=== PATIENT | female | born 1935 | race African-American/Black ===

== ENCOUNTER 2017-05-11 07:27 | Observation (INO) | payer MEDICARE, MEDICAID ==
[2017-05-11] MEDS ORDERED: Morphine 4 MG/ML VIAL ONE ×2 (07:50→10:21)
[2017-05-11 07:52] LABS: #Basophils 0.1 thou/uL (0.0-0.2); #Eosinphils 0.1 thou/uL (0.0-0.7); #Monocytes 0.7 thou/uL (0.11-0.59); #Neutrophils 3.4 thou/uL (1.40-6.50); %Eosinophils 2.2 % (0.0-10.0); %Lymphocytes 31.9 % (21.0-51.0); %Monocytes 11.1 % (0.0-10.0); %Neutrophils 53.8 % (42.0-75.0); Hemoglobin 11.6 g/dL (12.0-16.0); Mean Corpuscular Hemoglobin 30.6 pg (27.0-31.0); Mean Corpuscular Volume 92.8 fl (81.0-99.0); Platelet Count 248 thou/uL (130-400); White Blood Cell (WBC) Count 6.3 thou/uL (4.8-10.8)
[2017-05-11 08:04] LABS: INR-International Normal Ratio 3.7; PTT 44.1 SEC (22.9-36.1); Prothrombin Time 38.6 SEC (12.0-14.7)
[2017-05-11 08:16] LABS: ALT (SGPT) 29 U/L (8-55); AST (SGOT) 25 U/L (5-34); Albumin 4.2 g/dL (3.4-4.8); Alkaline Phosphatase 70 U/L (40-150); Anion Gap 15 mmol/L (10-20); BUN (Urea Nitrogen) 42 mg/dL (9.8-20.1); Bilirubin, Total 0.5 mg/dL (0.2-1.2); Calc. Creatinine Clearance 0 mL/min (70-130); Calcium 9.6 mg/dL (7.8-10.44); Carbon Dioxide 22 mmol/L (23-31); Chloride 101 mmol/L (98-107); Estimated GFR-MDRD 35; Globulin 3.8 g/dL (2.4-3.5); Glucose 115 mg/dL (83-110); Potassium 4.3 mmol/L (3.5-5.1); Sodium 134 mmol/L (136-145)
--- NOTE | 2017-05-11 08:36 | ULT ---
BILATERAL UPPER EXTREMITY VENOUS DOPPLER ULTRASOUND: HISTORY: Bilateral upper extremity pain. TECHNIQUE: Weber-scale, color-flow, and spectral Doppler imaging of the deep venous systems of the lower extremit ies is performed bilaterally. FINDINGS: There is good flow, compression, and augmentation noted in the common femoral, femoral, deep femoral, popliteal, posterior tibial, and greater saphenous veins on either side. 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 IMPRESSION: No evidence of deep venous thrombosis in either lower extremity. POS: GILBERTO
[2017-05-11 11:38] VITALS: BMI 33.7
[2017-05-11] MEDS ORDERED: Dextrose 50% Abboject 50 ML SYRINGE IVP PRN (13:18)
[2017-05-11] MEDS ORDERED: Dextrose 5% in Water 1,000 ML IV PRN (13:18)
[2017-05-11] MEDS ORDERED: Insulin Regular 300 UNITS/3 ML VIAL SC PRN (13:18)
[2017-05-11] MEDS ORDERED: Ondansetron HCl/PF 4 MG/2 ML Vial IVP PRN (13:59)
[2017-05-11] MEDS: Piperacillin/Tazobactam 3.375 GM in Sodium Chloride 0.9% 100 ML IVPB SCH ×2 (14:17→21:32)
[2017-05-11] MEDS: Sodium Chloride 0.9% 1,000 ML IV SCH (14:17)
[2017-05-11 14:40] LABS: Bilirubin Negative (Negative); Blood, Urine Negative (Negative); Clarity CLEAR (Clear); Glucose, Urine (Dipstick) Negative (Negative); Leukocyte Trace (Negative); Nitrite Negative (Negative); Protein, Urine (Dipstick) Negative (Neg-Trace); Specific Gravity, Urine 1.009 (1.002-1.036); Urobilinogen 0.2 mg/dL (0.2-1.0)
[2017-05-11 14:42] LABS: Bacteria/HPF None Seen HPF (None Seen); Hyaline Casts/LPF 0-3 HYALINE CAST LPF (0-3 Hyaline); RBC/HPF 0-3 HPF (0-3); Squamous Epithelial 0-3 HPF (0-3); WBC/HPF 0-3 HPF (0-3)
--- NOTE | 2017-05-11 15:49 | HP ---
HISTORY OF PRESENT ILLNESS: Ms. García is an 81-year-old black female, who was sent for right leg sw elling. According to the patient, she was seen by her primary care doctor Dr. Kenny about a wee k ago. She was diagnosed with cellulitis. She was given Augmentin; however, cellulitis has not impr zac. The patient complains of some right leg pain. A Doppler was done which showed negative studie s, having no evidence of DVT. REVIEW OF SYSTEMS: No chest pain, no shortness of breath. Positive for right leg pain. Positive fo r pruritic lesions around groin area as well as perianal area and breast area. Appetite is fair. En ergy level is fair. No headache, no diplopia, no syncopal episode, no productive cough. No fever or chills. No gross hematuria. No dysuria. No urinary frequency. No abdominal pain. Positive for j oint pains and back pain. MEDICATIONS: Zosyn 3.375 grams IV q.8, nifedipine 90 mg XL tablet once a day, Coreg 25 mg tablet b.i .d., Tylenol 500 mg tablet q.6 hours p.r.n. Coumadin 5 mg - half a tablet Sunday to Sunday, then 5 m g - 1 tablet Sunday and Sunday. Folic acid 1 mg tablet once daily, Protonix 40 mg tablet once a da y, atorvastatin 10 mg tablet at bedtime, Onglyza 5 mg tablet daily, Lantus insulin 25 units subcu q.a .m. Clotrimazole cream to be applied in the breast area, perianal area, and groin area twice a day. PAST MEDICAL HISTORY: 1. Sick sinus syndrome. 2. Type 2 diabetes mellitus. 3. Hypertension. 4. Chronic renal disease. 5. GERD. 6. Obesity. 7. Hyperlipidemia. 8. Chronic atrial fibrillation? 9. Type 2 diabetes mellitus. 10. Chronic fungal infection. PAST SURGICAL HISTORY: 1. 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 2. Status post permanent pacemaker placement. 3. Status post cardiac catheterization. 4. Status post right knee replacement. SOCIAL HISTORY: The patient lives alone, lives in [place]. Several children, retired email administrator. E [employer]ation 10th grade. No history of smoking, no alcohol intake, no IV drug abuse. No blood transfusi on. ALLERGIES: IODINE, CODEINE, TRAMADOL, SULFA. IMMUNIZATIONS: Unknown. HOSPITALIZATIONS: Please see past medical history. TRAUMA: None. FAMILY HISTORY: No family history of ESRD. PHYSICAL EXAMINATION: VITAL SIGNS: Blood pressure is 146/60, heart rate 80, pulse ox 97%. GENERAL: Awake, alert, supine, comfortable, obese, not in distress. SKIN: Adequate turgor. HEENT: She has pinkish conjunctivae, anicteric sclerae. NECK: No neck mass, no carotid bruits, no JVD. CHEST: No deformities. LUNGS: Clear breath sounds. HEART: Normal sinus rhythm. No murmur, no gallops, no rubs. ABDOMEN: Globular, soft, nontender, no masses. EXTREMITIES: No edema. Positive for right lower leg erythema and mild tenderness. NEUROLOGIC: Awake, oriented to 3 spheres. Moving all extremities. No tremors or asterixis, no atax ia. LABORATORY DATA: 05/11/2017: INR is 3.7, sodium 134, potassium is 4.3, chloride 101, carbon dioxide 22, BUN 42, creatinine 1.71, glucose 115, GFR 35 mL per minute. Albumin 4.2. BNP 280. White count 6.2, hemoglobin 11.6. Doppler of the right leg, negative for DVT. ASSESSMENT AND PLAN: 1. Right leg cellulitis, no evidence of deep vein thrombosis. We will start Zosyn 3.375 grams IV q. 8. If no improvement, we may need to consider ID consult. 2. 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 Continue supportiv e care, hold off valsartan temporarily. I will also discontinue her home medication of hydrochloroth iazide. 3. Hypertension. Continue current blood pressure meds. Due to the slightly increased creatinine, v alsartan/hydrochlorothiazide was discontinued and I did decrease nifedipine from 60 to 90 mg XL table t once a day. 4. Fungal infection - groin area and perianal area as well as the breast area - clotrimazole cream t o be applied twice a day. 5. Type 2 diabetes mellitus. Continue current insulin regimen, Humulin R sliding scale, as well as continue Onglyza. Medication reviewed. The patient currently will be on Zosyn at 3.375 grams IV q.8, nifedipine 90 mg XL tablet once a day, Coreg 25 mg tablet b.i.d., p.r.n. Tylenol, Coumadin as directed, folic acid 1 m g tablet once a day, Lantus 25 units in the morning, atorvastatin 10 mg tablet at bedtime, Onglyza 5 mg tablet once a day. Due to the mildly elevated INR 3.5, we will hold off about today's Coumadin. We will check CMP, CBC daily, and urinalysis in a.m. We will also do a renal ultrasound.
[2017-05-11] MEDS: Acetaminophen 500 MG TAB PO PRN (16:09)
--- NOTE | 2017-05-11 18:55 | ULT ---
EXAM: RENAL ULTRASOUND 05/11/17 HISTORY: Renal failure. COMPARISON: None. TECHNIQUE: Sagittal and transverse imaging of the kidneys is performed. FINDINGS: There is bilateral renal cortical thinning. Bilaterally, no hydronephrosis. Both kidneys are diminutive. Right kidney measures 8.1 x 4.5 x 4.4 cm. Left kidney measures 7.8 x 4.9 x 4.8 cm. Hypoechoic focus in the lower pole of the right kidney measuring 2.7 x 2.1 x 2.3 cm, compatible with a cyst. Hypoechoic focus in the mid portion left kidney measuring 1.4 x 1.5 x 1.4 cm, also compatible with a cyst. Urinary bladder is unremarkable. Bladder volume is 425 cubic centimeters. IMPRESSION: 1. Bilateral renal cortical thinning. 2. Bilaterally, no hydronephrosis. POS: GILBERTO
[2017-05-11] MEDS: Atorvastatin Calcium 10 MG TAB PO SCH (21:30)
[2017-05-11] MEDS: Carvedilol 25 MG TAB PO SCH (21:30)
[2017-05-11] MEDS: Clotrimazole 1 % Cream 30 GM TUBE TOP SCH (21:31)
[2017-05-12] MEDS: Sodium Chloride 0.9% 1,000 ML IV SCH ×3 (03:26→21:10)
[2017-05-12 04:32] LABS: #Eosinphils 0.2 thou/uL (0.0-0.7); #Lymphocytes 1.6 thou/uL (1.20-3.40); #Monocytes 0.7 thou/uL (0.11-0.59); #Neutrophils 3.3 thou/uL (1.40-6.50); %Basophils 0.6 % (0.0-1.0); %Eosinophils 3.3 % (0.0-10.0); %Lymphocytes 27.5 % (21.0-51.0); %Monocytes 12.5 % (0.0-10.0); %Neutrophils 56.1 % (42.0-75.0); Hemoglobin 10.4 g/dL (12.0-16.0); Mean Corpuscular HGB CONC 33.6 g/dL (32.0-36.0); Mean Corpuscular Hemoglobin 31.6 pg (27.0-31.0); Mean Corpuscular Volume 94.1 fl (81.0-99.0); Platelet Count 225 thou/uL (130-400); RBC Distribution Width 12.8 % (11.5-14.5); Red Blood Cell (RBC) Count 3.29 mill/uL (4.20-5.40); White Blood Cell (WBC) Count 5.9 thou/uL (4.8-10.8)
[2017-05-12 04:52] LABS: ALT (SGPT) 19 U/L (8-55); AST (SGOT) 19 U/L (5-34); Albumin 3.6 g/dL (3.4-4.8); Alkaline Phosphatase 56 U/L (40-150); Anion Gap 11 mmol/L (10-20); BUN (Urea Nitrogen) 38 mg/dL (9.8-20.1); Bilirubin, Total 0.5 mg/dL (0.2-1.2); Calc. Creatinine Clearance 31 mL/min (70-130); Calcium 8.9 mg/dL (7.8-10.44); Carbon Dioxide 26 mmol/L (23-31); Chloride 102 mmol/L (98-107); Estimated GFR-MDRD 32; Globulin 3.1 g/dL (2.4-3.5); Glucose 232 mg/dL (83-110); Potassium 4.3 mmol/L (3.5-5.1); Protein, Total 6.7 g/dL (6.0-8.3); Sodium 135 mmol/L (136-145)
[2017-05-12] MEDS: Piperacillin/Tazobactam 3.375 GM in Sodium Chloride 0.9% 100 ML IVPB SCH ×3 (06:15→21:42)
[2017-05-12] MEDS: Insulin Detemir 100 UNITS/ML 25 UNITS in Pre-Filled Syringe 1 EACH SC SCH (08:21)
[2017-05-12] MEDS: Alogliptin 25 MG TAB PO SCH (08:22)
[2017-05-12] MEDS: Folic Acid 1 MG TAB PO SCH (08:22)
[2017-05-12] MEDS: Clotrimazole 1 % Cream 30 GM TUBE TOP SCH ×2 (08:23→21:42)
[2017-05-12] MEDS: Carvedilol 25 MG TAB PO SCH ×2 (08:23→21:42)
[2017-05-12] MEDS ORDERED: NIFEdipine XL 90 MG TAB PO SCH (09:00)
[2017-05-12 09:09] LABS: Prothrombin Time 43.2 SEC (12.0-14.7)
[2017-05-12 09:17] LABS: INR-International Normal Ratio 4.3
--- NOTE | 2017-05-12 11:26 | PRG ---
DATE OF SERVICE: 05/12/2017 SERVICE: Renal Medicine. SUBJECTIVE: Ms. Ekaterina García is an 81-year-old black female admitted for right leg cellulitis. She fa iled oral therapy. She was admitted for initiation of IV antibiotics. Currently on Zosyn. I did al so discontinued her hydrochlorothiazide and valsartan due to her chronic renal failure. This morning , her INR was elevated at 4.2. Coumadin was placed on hold. Patient voices no new complaints. Her right leg pain is actually slightly better. Her erythema is a lso much improved. OBJECTIVE: VITAL SIGNS: Blood pressure 116/68, heart rate 65, respiratory rate 16, temperature 98.2, pulse ox 9 9%. GENERAL: Awake, alert, comfortable, not in distress. SKIN: Adequate turgor. HEENT: Slightly pale conjunctivae, anicteric sclerae. NECK: No neck mass, no carotid bruits, no JVD. CHEST: No deformities. LUNGS: Clear breath sounds. HEART: Normal sinus rhythm. No murmur, no gallops or rubs. ABDOMEN: Globular, soft, nontender, no masses. EXTREMITIES: No edema, no deformities. Mild erythema on the right leg and mild tenderness on palpat ion of the right leg. MEDICATIONS: Of 05/12/2017 was reviewed. LABORATORY DATA: Of 05/12/2017, white count 5.9, hemoglobin 10.4, sodium 135, potassium 4.3, chlorid e 102, carbon dioxide 26, BUN 38, creatinine 1.86, glucose 232, AST 19, ALT 19, albumin 3.6. Urinaly sis shows no protein. INR was 4.3. ASSESSMENT AND PLAN: 1. History of chronic atrial fibrillation? - currently on Coumadin. INR noted at 4.3. We will hold off Coumadin dosing today and recheck INR in a.m. 2. Right leg cellulitis - slightly improved on IV Zosyn, continue current IV antibiotics for the nex t 2-3 days. The erythema is decreased as well as the pain. 3. Elevated INR - will discontinue Coumadin. 4. Hypertension, much improved. I decreased Procardia from 90 to 60 mg XL tab once a day due to the lower blood pressure today. 5. Chronic renal failure. Relatively stable. Off hydrochlorothiazide and valsartan. We will reche ck basic metabolic panel and CBC and INR in a.m.
[2017-05-12] MEDS: Acetaminophen 500 MG TAB PO PRN (14:04)
[2017-05-12] MEDS ORDERED: Warfarin Sodium 5 MG TAB PO SCH (17:00)
[2017-05-12] MEDS: Atorvastatin Calcium 10 MG TAB PO SCH (21:42)
[2017-05-13 05:54] LABS: #Eosinphils 0.2 thou/uL (0.0-0.7); #Lymphocytes 1.6 thou/uL (1.20-3.40); #Monocytes 0.6 thou/uL (0.11-0.59); #Neutrophils 3.5 thou/uL (1.40-6.50); %Basophils 0.6 % (0.0-1.0); %Eosinophils 3.4 % (0.0-10.0); %Lymphocytes 27.4 % (21.0-51.0); %Monocytes 10.4 % (0.0-10.0); %Neutrophils 58.2 % (42.0-75.0); Hemoglobin 9.8 g/dL (12.0-16.0); Mean Corpuscular HGB CONC 32.4 g/dL (32.0-36.0); Mean Corpuscular Hemoglobin 30.8 pg (27.0-31.0); Mean Corpuscular Volume 94.9 fl (81.0-99.0); Mean Platelet Volume 5.9 fL (7.4-10.4); Platelet Count 214 thou/uL (130-400); RBC Distribution Width 13.1 % (11.5-14.5); Red Blood Cell (RBC) Count 3.17 mill/uL (4.20-5.40)
[2017-05-13 06:10] LABS: Anion Gap 9 mmol/L (10-20); BUN (Urea Nitrogen) 26 mg/dL (9.8-20.1); Calc. Creatinine Clearance 37 mL/min (70-130); Calcium 8.7 mg/dL (7.8-10.44); Carbon Dioxide 25 mmol/L (23-31); Chloride 108 mmol/L (98-107); Estimated GFR-MDRD 40; Glucose 116 mg/dL (83-110); Potassium 4.4 mmol/L (3.5-5.1); Sodium 138 mmol/L (136-145)
[2017-05-13] MEDS: Piperacillin/Tazobactam 3.375 GM in Sodium Chloride 0.9% 100 ML IVPB SCH (06:33)
[2017-05-13] MEDS: Sodium Chloride 0.9% 1,000 ML IV SCH (07:17)
[2017-05-13 07:46] VITALS: TEMP 98.6
[2017-05-13] MEDS: Carvedilol 25 MG TAB PO SCH (08:25)
[2017-05-13] MEDS: Acetaminophen 500 MG TAB PO PRN (08:25)
[2017-05-13] MEDS: Folic Acid 1 MG TAB PO SCH (08:25)
[2017-05-13] MEDS: Alogliptin 25 MG TAB PO SCH (08:28)
[2017-05-13] MEDS: Clotrimazole 1 % Cream 30 GM TUBE TOP SCH (08:29)
[2017-05-13] MEDS: Insulin Detemir 100 UNITS/ML 25 UNITS in Pre-Filled Syringe 1 EACH SC SCH (08:31)
[2017-05-13 08:34] VITALS: BP 116/68
[2017-05-13] MEDS ORDERED: NIFEdipine XL 60 MG TAB PO SCH (09:00)
[2017-05-13 09:15] LABS: INR-International Normal Ratio 3.7; Prothrombin Time 38.4 SEC (12.0-14.7)
[2017-05-13] MEDS ORDERED: Warfarin Sodium 5 MG TAB PO SCH (17:00)
--- NOTE | 2017-05-13 19:00 | DIS ---
DATE OF ADMISSION: 05/11/2017 DATE OF DISCHARGE: 05/13/2017 ADMITTING DIAGNOSES: Right leg cellulitis, hypertension, acute kidney injury. DISCHARGE DIAGNOSES: Right leg cellulitis, hypertension, acute kidney injury, diabetes mellitus. IMAGIN. On 05/11/2017, right leg Doppler negative for DVT. 2. Renal ultrasound of 05/11/2017, bilateral renal cortical thinning bilaterally, no hydronephrosis. INVASIVE PROCEDURES: None. BRIEF HISTORY: Ms. García is an 81-year-old black female with known multiple medical problems and pr esented to the ER with right leg pain. At that time, she was considered to be a failed antibiotic th erapy. She was on Augmentin. She was converted to IV Zosyn on this hospitalization. HOSPITAL COURSE: On the day of admission, we discontinued Augmentin. The patient was started on IV Zosyn 3.375 grams IV q.8. In addition, she was ruled out for right leg DVT. The initial vital signs were noted to be stable with the patient. However, due to the relatively lower blood pressure, her valsartan/hydrochlorothiazide has been discontinued. She was maintained on Coreg and nifedipine. Fu rthermore, the INR was noted to be elevated. For that reason, she received no Coumadin in the last 3 days. On the first hospital day, the right leg swelling and hematoma was much improved. Vital sign s were stable. Her laboratories at that time showed a sodium of 135, potassium 4.3, BUN of 38, creat inine 1.86, carbon dioxide 26. On the day of discharge, the patient was noted to be hemodynamically stable. PHYSICAL EXAMINATION: VITAL SIGNS: Blood pressure 116/68 with a heart rate of 69, respiratory rate of 18, temperature 98.6 . GENERAL: She was awake, comfortable, not in distress. SKIN: Adequate turgor. HEENT: Pinkish conjunctivae, anicteric sclerae. NECK: No neck mass, no carotid bruits, no JVD. CHEST: No deformities. LUNGS: Clear breath sounds. HEART: Normal sinus rhythm. No murmur, no gallops, no rubs. ABDOMEN: Globular, soft, nontender. No masses. EXTREMITIES: No edema. Her laboratories on 05/13/2017 showed sodium 138, potassium 4.4, chloride 108, carbon dioxide 25, BUN 26, creatinine 1.53, glucose 116, calcium 8.7. Hemoglobin was 9.8. INR was 3.7. Please note the I NR peaked at 4.3 on 05/12/2017. Due to the unimproved condition with her cellulitis - right leg pain and right leg erythema was much improved. The patient was planned to be discharged. DISCHARGE CONDITION: Improved. DISCHARGE INSTRUCTIONS: The patient instructed on diabetic and heart healthy diet. In addition, she will follow up with Dr. Kenny in one week's time. Adjustments with Coumadin was done where she will now take it only at 2.5 mg tablet once a day. In addition, her valsartan/hydrochlorothiazide h as been placed on hold. DISCHARGE MEDICATIONS: Ciprofloxacin 500 mg 1 tablet b.i.d. x7 days, clotrimazole cream applied to l esions twice a day. She will continue with her Coumadin as 2.5 mg tablet daily, Protonix 40 mg table t once a day, nifedipine 60 mg tablet once a day, insulin Levemir 25 units subcu q.a.m., folic acid 1 mg daily, clotrimazole cream apply twice a day, carvedilol 25 mg tablet b.i.d., atorvastatin 10 mg t ablet at bedtime, saxagliptin 5 mg tablet once a day, vitamin D3 5000 international units daily, vit dumont B12 1000 mg daily, omega fish oil 1 capsule every day, acetaminophen 325 mg 2 tablets q.4 hours p.r.n.
[2017-05-14] MEDS ORDERED: Warfarin Sodium 2.5 MG TAB PO SCH (17:00)
== END 2017-05-13 14:41 | disposition home or self-care (01) ==
LOC: ERS 07:27 → T4-A 09:00
PROVIDERS: ADMIT Internal Medicine Nephrology; ATTEND Internal Medicine Nephrology
DX: L03.115 Cellulitis of right lower limb (principal); I49.5 Sick sinus syndrome; E11.22 Type 2 diabetes mellitus with diabetic chronic kidney disease; I12.9 Hypertensive chronic kidney disease with stage 1 through stage 4 chronic kidney disease, or unspecified chronic kidney disease; N18.9 Chronic kidney disease, unspecified; N17.9 Acute kidney failure, unspecified; K21.9 Gastro-esophageal reflux disease without esophagitis; E78.5 Hyperlipidemia, unspecified; I48.2 Chronic atrial fibrillation; B49 Unspecified mycosis; E66.9 Obesity, unspecified; Z68.33 Body mass index [BMI] 33.0-33.9, adult; Z88.2 Allergy status to sulfonamides; Z88.5 Allergy status to narcotic agent; Z91.041 Radiographic dye allergy status; Z91.040 Latex allergy status; Z79.01 Long term (current) use of anticoagulants; Z79.4 Long term (current) use of insulin; Z79.899 Other long term (current) drug therapy; Z95.0 Presence of cardiac pacemaker; Z96.651 Presence of right artificial knee joint; Z98.890 Other specified postprocedural states; Z86.010 Personal history of colon polyps
CPT/HCPCS: 76770; 80048; 80053 ×2; 82962 ×3; 83605; 83880; 85025 ×3; 85610 ×3; 85730; 93970; 96361 ×3; 96365; 96366 ×2; 96367; 96375; 96376; 97116; 97139 ×2; 97530; 99285; G0378 ×2; G8978; G8979; 36415; 36416; 81003; 81015; J0696; J1815; J2270; J2405; J2543; J7050

== ENCOUNTER 2019-06-21 20:05 | Emergency (ER) | payer MEDICARE, OTHER ==
--- NOTE | 2019-06-21 21:02 | RAD ---
XR Knee Lt 4 View STANDARD HISTORY: Right knee pain FINDINGS: No fracture or dislocation is identified. Marked degenerative changes are seen.
--- NOTE | 2019-06-21 21:03 | RAD ---
XR Tib Fib Lt Leg 2 View HISTORY: Left leg pain FINDINGS: The left tibia and fibula appear intact. There are severe degenerative changes in the left knee.
== END 2019-06-21 21:22 | disposition home or self-care (01) ==
LOC: ERS 20:05
DX: M25.562 Pain in left knee (principal); M19.90 Unspecified osteoarthritis, unspecified site; E78.5 Hyperlipidemia, unspecified; E11.9 Type 2 diabetes mellitus without complications; I11.0 Hypertensive heart disease with heart failure; I50.9 Heart failure, unspecified; K21.9 Gastro-esophageal reflux disease without esophagitis; Z79.01 Long term (current) use of anticoagulants; Z79.899 Other long term (current) drug therapy; Z79.4 Long term (current) use of insulin

== ENCOUNTER 2022-10-25 14:40 | Inpatient (IN) | payer MEDICARE, OTHER ==
[2022-10-25 15:16] LABS: #Basophils 0.1 thou/uL (0.0-0.2); #Eosinphils 0.1 thou/uL (0.0-0.7); #Monocytes 0.8 thou/uL (0.11-0.59); #Neutrophils 5.4 thou/uL (1.40-6.50); %Basophils 0.6 % (0.0-1.0); %Lymphocytes 19.8 % (21.0-51.0); Hemoglobin 11.4 g/dL (12.0-16.0); Mean Corpuscular HGB CONC 33.7 g/dL (32.0-36.0); Mean Corpuscular Hemoglobin 29.8 pg (27.0-31.0); Mean Corpuscular Volume 88.3 fl (78.0-98.0); Mean Platelet Volume 8.4 fL (7.4-10.4); Platelet Count 199 10x3/uL (130-400); RBC Distribution Width 13.6 % (11.5-14.5); Red Blood Cell (RBC) Count 3.83 mill/uL (4.20-5.40); White Blood Cell (WBC) Count 7.9 10x3/uL (4.8-10.8)
[2022-10-25 15:40] LABS: ALT (SGPT) 20 U/L (8-55); AST (SGOT) 16 U/L (5-34); Albumin 3.9 g/dL (3.4-4.8); Alkaline Phosphatase 87 U/L (40-110); Anion Gap 11 mmol/L (10-20); BUN (Urea Nitrogen) 25 mg/dL (9.8-20.1); Bilirubin, Total 0.4 mg/dL (0.2-1.2); Calc. Creatinine Clearance 0 mL/min (70-130); Carbon Dioxide 29 mmol/L (23-31); Chloride 99 mmol/L (98-107); Estimated GFR 40; Globulin 3.5 g/dL (2.4-3.5); Potassium 3.7 mmol/L (3.5-5.1); Protein, Total 7.4 g/dL (5.8-8.1); Sodium 135 mmol/L (136-145)
[2022-10-25 15:42] LABS: Glucose 46 mg/dL (83-110)
[2022-10-25 16:01] LABS: CKMB 2.3 ng/mL (0-6.6)
[2022-10-25 16:15] LABS: INR-International Normal Ratio 2.3; PTT 31.6 sec (22.9-36.1); Prothrombin Time 26.5 sec (12.0-14.7)
[2022-10-25] MEDS ORDERED: Mag-Al 1200 mg/1200 mg/30 ML UDCUP ONE (17:26)
[2022-10-25] MEDS ORDERED: Lidocaine Viscous Sol 2% 15 ml UD Cup ONE (17:26)
[2022-10-25] MEDS ORDERED: Dextrose 50% Abboject 50 ML SYRINGE SLOW IVP PRN (18:04)
[2022-10-25] MEDS ORDERED: Glucagon 1 MG/ML KIT IM PRN (18:04)
[2022-10-25] MEDS ORDERED: Dextrose 5% in Water 1,000 ML IV PRN (18:04)
[2022-10-25] MEDS ORDERED: Acetaminophen 325 MG TAB PO PRN (18:04)
[2022-10-25] MEDS ORDERED: Calcium Carbonate 500 MG ChewTAB PO PRN (18:04)
[2022-10-25] MEDS ORDERED: Ondansetron ODT 4 MG TAB PO PRN (18:04)
[2022-10-25] MEDS ORDERED: Nitroglycerin 0.4 MG TAB (25 Tab Bottle) SL PRN (18:04)
[2022-10-25] MEDS ORDERED: NIFEdipine XL 30 MG TAB ONE (18:58)
[2022-10-25] MEDS ORDERED: Lidocaine 2% Viscous Solution 10 ML, Aluminum & Magnesium Hydroxide 30 ML SSW SCH (19:00)
[2022-10-25] MEDS ORDERED: Carvedilol 6.25 MG TAB PO SCH (19:00)
[2022-10-25] MEDS ORDERED: NIFEdipine XL 30 MG TAB PO SCH (19:00)
[2022-10-25] MEDS ORDERED: Heparin 5,000 UNITS/ML VIAL SC SCH (21:00)
[2022-10-25 21:50] VITALS: BMI 31.3
[2022-10-25 22:16] LABS: Troponin I 0.014 ng/mL (< 0.028)
[2022-10-26] MEDS: Ondansetron PF 4 MG/2 ML Vial IVP PRN ×2 (00:47→09:50)
[2022-10-26 05:03] LABS: #Eosinphils 0.1 thou/uL (0.0-0.7); #Monocytes 0.8 thou/uL (0.11-0.59); #Neutrophils 5.5 thou/uL (1.40-6.50); %Basophils 0.5 % (0.0-1.0); %Eosinophils 0.9 % (0.0-10.0); %Lymphocytes 21.5 % (21.0-51.0); %Monocytes 9.3 % (0.0-10.0); %Neutrophils 67.1 % (42.0-75.0); Hemoglobin 10.5 g/dL (12.0-16.0); Mean Corpuscular HGB CONC 32.5 g/dL (32.0-36.0); Mean Corpuscular Volume 89.2 fl (78.0-98.0); Mean Platelet Volume 9.1 fL (7.4-10.4); Platelet Count 198 10x3/uL (130-400); RBC Distribution Width 13.8 % (11.5-14.5); Red Blood Cell (RBC) Count 3.62 mill/uL (4.20-5.40); White Blood Cell (WBC) Count 8.2 10x3/uL (4.8-10.8)
[2022-10-26 05:23] LABS: Anion Gap 12 mmol/L (10-20); BUN (Urea Nitrogen) 23 mg/dL (9.8-20.1); Calc. Creatinine Clearance 43 mL/min (70-130); Calcium 8.9 mg/dL (7.8-10.44); Carbon Dioxide 27 mmol/L (23-31); Cardiac Risk 2.2 (Less than 4.5); Chloride 100 mmol/L (98-107); Cholesterol 102 mg/dl (< 200 Desired); Estimated GFR 41; Glucose 111 mg/dL (83-110); HDL Cholesterol 46 mg/dL (>60 Neg Risk); LDL Cholesterol, Calculated 45 mg/dL; Potassium 4.2 mmol/L (3.5-5.1); Sodium 135 mmol/L (136-145); Triglycerides 53 mg/dL (Less than 150)
[2022-10-26 08:13] LABS: INR-International Normal Ratio 2.3; PTT 32.1 sec (22.9-36.1); Prothrombin Time 26.6 sec (12.0-14.7)
[2022-10-26] MEDS ORDERED: SAXAGLIPTIN HCL 5 MG PO SCH (09:00)
[2022-10-26] MEDS ORDERED: Atorvastatin Calcium 20 MG TAB PO SCH (09:00)
[2022-10-26] MEDS ORDERED: Carvedilol 25 MG TAB PO SCH (09:00)
[2022-10-26] MEDS: Aspirin Chewable 81 MG TAB PO SCH (09:49)
[2022-10-26] MEDS: Folic Acid 1 MG TAB PO SCH (09:50)
[2022-10-26] MEDS: NIFEdipine XL 30 MG TAB PO SCH (09:50)
[2022-10-26] MEDS: Alogliptin 25 MG TAB PO SCH (09:50)
[2022-10-26] MEDS ORDERED: Regadenoson 0.4 MG/5 ML SYRINGE ONE (10:12)
[2022-10-26 12:40] LABS: Bilirubin Negative (Negative); Blood, Urine Negative (Negative); CAUTI Indications for Culture Pelvic or flank pain; Clarity Clear (Clear); Glucose, Urine (Dipstick) Normal (Negative); Ketone, Urine Negative (Negative); Leukocyte Negative Leu/uL (Negative); Nitrite Negative (Negative); Protein, Urine (Dipstick) Negative (Neg-Trace); RBC/HPF None Seen HPF (0-3); Specific Gravity, Urine 1.012 (1.002-1.036); Squamous Epithelial None Seen HPF (0-3); Urobilinogen Normal mg/dL (Less than 2); WBC/HPF 0-3 HPF (0-3)
[2022-10-26 12:41] LABS: Bacteria/HPF 1+ HPF (None Seen)
[2022-10-26 12:42] LABS: Urine Culture Reflex No No
[2022-10-26 13:06] LABS: SARS-CoV-2 NAA Rapid Test Not Detected (NotDetected)
[2022-10-26 14:06] LABS: ALT (SGPT) 18 U/L (8-55); AST (SGOT) 14 U/L (5-34); Albumin 3.6 g/dL (3.4-4.8); Alkaline Phosphatase 87 U/L (40-110); Bilirubin, Direct 0.5 mg/dL (0.1-0.3); Bilirubin, Total 0.9 mg/dL (0.2-1.2); Protein, Total 6.9 g/dL (5.8-8.1)
[2022-10-26] MEDS ORDERED: Warfarin Sodium 2.5 MG TAB PO SCH ×2 (17:00→18:00)
[2022-10-26] MEDS ORDERED: Warfarin Sodium 5 MG TAB PO SCH ×2 (17:45)
[2022-10-26] MEDS: HumaLOG 300 UNITS/3 ML VIAL SC PRN (18:38)
[2022-10-26] MEDS: Atorvastatin Calcium 10 MG TAB PO SCH (20:13)
[2022-10-26] MEDS: Carvedilol 25 MG TAB PO SCH (20:13)
[2022-10-27 05:09] LABS: #Monocytes 1.1 thou/uL (0.11-0.59); #Neutrophils 7.3 thou/uL (1.40-6.50); %Basophils 0.4 % (0.0-1.0); %Eosinophils 0.3 % (0.0-10.0); %Lymphocytes 12.9 % (21.0-51.0); %Monocytes 10.9 % (0.0-10.0); Hemoglobin 11.1 g/dL (12.0-16.0); Mean Corpuscular HGB CONC 32.9 g/dL (32.0-36.0); Mean Corpuscular Hemoglobin 29.6 pg (27.0-31.0); Mean Corpuscular Volume 89.9 fl (78.0-98.0); Platelet Count 210 10x3/uL (130-400); RBC Distribution Width 13.7 % (11.5-14.5); Red Blood Cell (RBC) Count 3.75 mill/uL (4.20-5.40); White Blood Cell (WBC) Count 9.7 10x3/uL (4.8-10.8)
[2022-10-27 05:15] LABS: INR-International Normal Ratio 2.6; PTT 38.1 sec (22.9-36.1); Prothrombin Time 29.1 sec (12.0-14.7)
[2022-10-27 05:33] LABS: Anion Gap 12 mmol/L (10-20); BUN (Urea Nitrogen) 24 mg/dL (9.8-20.1); Calc. Creatinine Clearance 37 mL/min (70-130); Calcium 8.7 mg/dL (7.8-10.44); Carbon Dioxide 28 mmol/L (23-31); Chloride 101 mmol/L (98-107); Estimated GFR 34; Glucose 173 mg/dL (83-110); Potassium 4.2 mmol/L (3.5-5.1); Sodium 137 mmol/L (136-145)
[2022-10-27] MEDS: Ondansetron PF 4 MG/2 ML Vial IVP PRN (07:55)
[2022-10-27] MEDS: Aspirin Chewable 81 MG TAB PO SCH (10:12)
[2022-10-27] MEDS: NIFEdipine XL 30 MG TAB PO SCH (10:12)
[2022-10-27] MEDS: Alogliptin 25 MG TAB PO SCH (10:13)
[2022-10-27] MEDS: Folic Acid 1 MG TAB PO SCH (10:13)
[2022-10-27] MEDS: Carvedilol 25 MG TAB PO SCH ×2 (10:14→21:06)
[2022-10-27] MEDS ORDERED: Furosemide 40 MG/4 ML VIAL SLOW IVP SCH (10:15)
[2022-10-27] MEDS ORDERED: NIFEdipine XL 30 MG TAB PO SCH (10:30)
[2022-10-27] MEDS ORDERED: Warfarin Sodium 2.5 MG TAB PO SCH ×2 (17:00→17:30)
[2022-10-27] MEDS: HumaLOG 300 UNITS/3 ML VIAL SC PRN ×2 (17:36→21:05)
[2022-10-27] MEDS: Atorvastatin Calcium 10 MG TAB PO SCH (21:05)
[2022-10-28] MEDS: HumaLOG 300 UNITS/3 ML VIAL SC PRN ×4 (05:27→21:28)
[2022-10-28 05:28] LABS: #Eosinphils 0.1 thou/uL (0.0-0.7); #Monocytes 1.1 thou/uL (0.11-0.59); #Neutrophils 6.2 thou/uL (1.40-6.50); %Basophils 0.5 % (0.0-1.0); %Eosinophils 0.6 % (0.0-10.0); %Lymphocytes 15.9 % (21.0-51.0); %Monocytes 12.9 % (0.0-10.0); %Neutrophils 69.4 % (42.0-75.0); Hemoglobin 11.1 g/dL (12.0-16.0); Mean Corpuscular HGB CONC 32.6 g/dL (32.0-36.0); Mean Corpuscular Hemoglobin 29.7 pg (27.0-31.0); Mean Corpuscular Volume 90.9 fl (78.0-98.0); Mean Platelet Volume 9.2 fL (7.4-10.4); Platelet Count 191 10x3/uL (130-400); RBC Distribution Width 13.7 % (11.5-14.5); Red Blood Cell (RBC) Count 3.74 mill/uL (4.20-5.40); White Blood Cell (WBC) Count 8.9 10x3/uL (4.8-10.8)
[2022-10-28 05:51] LABS: Calcium 8.9 mg/dL (7.8-10.44); Chloride 103 mmol/L (98-107); Potassium 4.9 mmol/L (3.5-5.1); Sodium 136 mmol/L (136-145)
[2022-10-28 06:00] LABS: BUN (Urea Nitrogen) 31 mg/dL (9.8-20.1); Calc. Creatinine Clearance 33 mL/min (70-130); Carbon Dioxide 22 mmol/L (23-31); Estimated GFR 30; Glucose 208 mg/dL (83-110)
[2022-10-28 06:54] LABS: Anion Gap 16 mmol/L (10-20)
[2022-10-28] MEDS: Carvedilol 25 MG TAB PO SCH ×2 (08:02→21:25)
[2022-10-28] MEDS: Folic Acid 1 MG TAB PO SCH (08:02)
[2022-10-28] MEDS: Aspirin Chewable 81 MG TAB PO SCH (08:04)
[2022-10-28] MEDS: Alogliptin 25 MG TAB PO SCH (08:04)
[2022-10-28] MEDS ORDERED: NIFEdipine XL 60 MG TAB PO SCH (09:00)
[2022-10-28] MEDS ORDERED: NIFEdipine XL 30 MG TAB PO SCH (09:00)
[2022-10-28 09:02] LABS: INR-International Normal Ratio 2.4; PTT 40.6 sec (22.9-36.1); Prothrombin Time 27.6 sec (12.0-14.7)
[2022-10-28] MEDS: Ondansetron PF 4 MG/2 ML Vial IVP PRN (12:17)
[2022-10-28] MEDS ORDERED: Lidocaine 2% Viscous Solution 10 ML, Aluminum & Magnesium Hydroxide 30 ML SSW SCH (14:30)
[2022-10-28 14:39] LABS: ALT (SGPT) 13 U/L (8-55); AST (SGOT) 16 U/L (5-34); Albumin 3.3 g/dL (3.4-4.8); Alkaline Phosphatase 77 U/L (40-110); Bilirubin, Direct 0.4 mg/dL (0.1-0.3); Bilirubin, Total 0.9 mg/dL (0.2-1.2); Lipase 14 U/L (8-78); Protein, Total 6.9 g/dL (5.8-8.1)
[2022-10-28] MEDS: Promethazine HCl 12.5 MG in Sodium Chloride 0.9% 50 ML IVPB PRN (16:41)
[2022-10-28] MEDS ORDERED: Warfarin Sodium 5 MG TAB PO SCH (17:00)
[2022-10-28] MEDS ORDERED: Polyethylene Glycol 3350 17 GM Packet PO SCH (17:15)
[2022-10-28] MEDS: Sucralfate 1 GM TAB PO SCH ×2 (17:25→21:25)
[2022-10-28] MEDS: Atorvastatin Calcium 10 MG TAB PO SCH (21:26)
[2022-10-28] MEDS: Insulin Glargine 30 UNITS/0.3 ML VIAL SC SCH (21:27)
[2022-10-29] MEDS: HumaLOG 300 UNITS/3 ML VIAL SC PRN ×2 (05:34→17:53)
[2022-10-29 06:52] LABS: #Eosinphils 0.1 thou/uL (0.0-0.7); #Monocytes 0.8 thou/uL (0.11-0.59); #Neutrophils 7.2 thou/uL (1.40-6.50); %Basophils 0.4 % (0.0-1.0); %Eosinophils 0.6 % (0.0-10.0); %Lymphocytes 13.2 % (21.0-51.0); %Monocytes 8.4 % (0.0-10.0); %Neutrophils 76.8 % (42.0-75.0); Hemoglobin 10.7 g/dL (12.0-16.0); Mean Corpuscular HGB CONC 33.1 g/dL (32.0-36.0); Mean Corpuscular Hemoglobin 29.9 pg (27.0-31.0); Mean Corpuscular Volume 90.2 fl (78.0-98.0); Mean Platelet Volume 8.8 fL (7.4-10.4); Platelet Count 195 10x3/uL (130-400); RBC Distribution Width 13.7 % (11.5-14.5); Red Blood Cell (RBC) Count 3.58 mill/uL (4.20-5.40); White Blood Cell (WBC) Count 9.4 10x3/uL (4.8-10.8)
[2022-10-29 07:08] LABS: PTT 39.8 sec (22.9-36.1); Prothrombin Time 32.9 sec (12.0-14.7)
[2022-10-29 07:16] LABS: Anion Gap 12 mmol/L (10-20); BUN (Urea Nitrogen) 34 mg/dL (9.8-20.1); Calc. Creatinine Clearance 35 mL/min (70-130); Calcium 9.2 mg/dL (7.8-10.44); Carbon Dioxide 29 mmol/L (23-31); Chloride 96 mmol/L (98-107); Estimated GFR 32; Glucose 156 mg/dL (83-110); Potassium 4.2 mmol/L (3.5-5.1); Sodium 133 mmol/L (136-145)
[2022-10-29] MEDS: Aspirin Chewable 81 MG TAB PO SCH (08:33)
[2022-10-29] MEDS: Folic Acid 1 MG TAB PO SCH (08:33)
[2022-10-29] MEDS: Sucralfate 1 GM TAB PO SCH ×4 (08:33→21:53)
[2022-10-29] MEDS: Carvedilol 25 MG TAB PO SCH ×2 (08:33→21:53)
[2022-10-29] MEDS: Polyethylene Glycol 3350 17 GM Packet PO SCH (08:34)
[2022-10-29] MEDS ORDERED: NIFEdipine XL 30 MG TAB PO SCH (09:00)
[2022-10-29] MEDS ORDERED: Sodium Chloride 0.65% Nasal 44 ML BOT EA NARE PRN (14:32)
[2022-10-29] MEDS ORDERED: Moisturizing Cream (Eucerin) 113 GM JAR TOP PRN (14:32)
[2022-10-29] MEDS ORDERED: Phenol 118 ML BOT PO PRN (14:42)
[2022-10-29] MEDS ORDERED: Fleet Saline Enema 133 ML BOT PR SCH (15:00)
[2022-10-29] MEDS: Dextrose 5%-Lactated Ringers 1,000 ML IV SCH (15:00)
[2022-10-29] MEDS: Promethazine HCl 12.5 MG in Sodium Chloride 0.9% 50 ML IVPB PRN (15:01)
[2022-10-29] MEDS: GUAIFENESIN SF SOLN 200 MG/10 ML UDCUP PO PRN ×2 (15:01→21:53)
[2022-10-29] MEDS: Loratadine 10 MG TAB PO PRN (15:01)
[2022-10-29] MEDS: Benzonatate 100 MG CAP PO PRN ×2 (15:01→21:53)
[2022-10-29] MEDS: Insulin Glargine 30 UNITS/0.3 ML VIAL SC SCH (21:53)
[2022-10-29] MEDS: Atorvastatin Calcium 10 MG TAB PO SCH (21:53)
[2022-10-30] MEDS: Dextrose 5%-Lactated Ringers 1,000 ML IV SCH (04:40)
[2022-10-30 05:27] LABS: #Monocytes 0.9 thou/uL (0.11-0.59); #Neutrophils 9.6 thou/uL (1.40-6.50); %Basophils 0.3 % (0.0-1.0); %Eosinophils 0.1 % (0.0-10.0); %Lymphocytes 6.1 % (21.0-51.0); %Monocytes 7.9 % (0.0-10.0); %Neutrophils 85.2 % (42.0-75.0); Hemoglobin 10.9 g/dL (12.0-16.0); Mean Corpuscular HGB CONC 33.1 g/dL (32.0-36.0); Mean Corpuscular Hemoglobin 29.9 pg (27.0-31.0); Mean Corpuscular Volume 90.4 fl (78.0-98.0); Mean Platelet Volume 9.1 fL (7.4-10.4); Platelet Count 203 10x3/uL (130-400); RBC Distribution Width 13.5 % (11.5-14.5); Red Blood Cell (RBC) Count 3.64 mill/uL (4.20-5.40); White Blood Cell (WBC) Count 11.3 10x3/uL (4.8-10.8)
[2022-10-30 05:51] LABS: Anion Gap 11 mmol/L (10-20); BUN (Urea Nitrogen) 19 mg/dL (9.8-20.1); Calc. Creatinine Clearance 50 mL/min (70-130); Calcium 8.7 mg/dL (7.8-10.44); Carbon Dioxide 28 mmol/L (23-31); Chloride 99 mmol/L (98-107); Estimated GFR 49; Glucose 212 mg/dL (83-110); Potassium 4.2 mmol/L (3.5-5.1); Sodium 134 mmol/L (136-145)
[2022-10-30] MEDS: HumaLOG 300 UNITS/3 ML VIAL SC PRN ×3 (06:11→15:53)
[2022-10-30 07:19] LABS: INR-International Normal Ratio 3.6; Prothrombin Time 37.6 sec (12.0-14.7)
[2022-10-30] MEDS: Carvedilol 25 MG TAB PO SCH ×2 (08:33→20:35)
[2022-10-30] MEDS: Loratadine 10 MG TAB PO PRN (08:33)
[2022-10-30] MEDS: Aspirin Chewable 81 MG TAB PO SCH (08:33)
[2022-10-30] MEDS: Folic Acid 1 MG TAB PO SCH (08:33)
[2022-10-30] MEDS: Sucralfate 1 GM TAB PO SCH ×4 (08:33→20:36)
[2022-10-30] MEDS: Benzonatate 100 MG CAP PO PRN ×3 (08:33→20:35)
[2022-10-30] MEDS: GUAIFENESIN SF SOLN 200 MG/10 ML UDCUP PO PRN ×3 (08:34→20:36)
[2022-10-30] MEDS: Polyethylene Glycol 3350 17 GM Packet PO SCH (08:35)
[2022-10-30] MEDS ORDERED: Artificial Tear Sol 15 ML BOT EA EYE PRN (09:00)
[2022-10-30] MEDS ORDERED: Warfarin Sodium 2.5 MG TAB PO SCH (17:00)
[2022-10-30] MEDS: Atorvastatin Calcium 10 MG TAB PO SCH (20:35)
[2022-10-30] MEDS: Insulin Glargine 30 UNITS/0.3 ML VIAL SC SCH (20:38)
[2022-10-31 06:50] LABS: INR-International Normal Ratio 2.8; Prothrombin Time 30.7 sec (12.0-14.7)
[2022-10-31 06:51] LABS: PTT 43.4 sec (22.9-36.1)
[2022-10-31] MEDS: Benzonatate 100 MG CAP PO PRN (09:04)
[2022-10-31] MEDS: Carvedilol 25 MG TAB PO SCH (09:04)
[2022-10-31] MEDS: Sucralfate 1 GM TAB PO SCH ×2 (09:04→11:37)
[2022-10-31] MEDS: Folic Acid 1 MG TAB PO SCH (09:04)
[2022-10-31] MEDS: Aspirin Chewable 81 MG TAB PO SCH (09:05)
[2022-10-31] MEDS: Polyethylene Glycol 3350 17 GM Packet PO SCH (09:05)
[2022-10-31] MEDS: GUAIFENESIN SF SOLN 200 MG/10 ML UDCUP PO PRN (11:37)
[2022-10-31] MEDS: HumaLOG 300 UNITS/3 ML VIAL SC PRN (11:37)
[2022-10-31 14:03] VITALS: BP 184/73; TEMP 97
[2022-11-04] MEDS ORDERED: Warfarin Sodium 5 MG TAB PO SCH (17:00)
== END 2022-10-31 14:04 | disposition home health service (06) | DRG 313 ==
LOC: ERS 14:40 → 2SW 17:36 → OBSVTOIN 10-26 13:12 → T4-A 10-27 18:36
PROVIDERS: ADMIT Internal Medicine; ATTEND Family Medicine
DX: R07.9 Chest pain, unspecified (principal); N17.9 Acute kidney failure, unspecified; I48.21 Permanent atrial fibrillation; J98.11 Atelectasis; K59.00 Constipation, unspecified; M19.90 Unspecified osteoarthritis, unspecified site; E78.5 Hyperlipidemia, unspecified; K21.9 Gastro-esophageal reflux disease without esophagitis; N18.30 Chronic kidney disease, stage 3 unspecified; I12.9 Hypertensive chronic kidney disease with stage 1 through stage 4 chronic kidney disease, or unspecified chronic kidney disease; Z20.822 Contact with and (suspected) exposure to COVID-19; E11.22 Type 2 diabetes mellitus with diabetic chronic kidney disease; Z91.040 Latex allergy status; Z88.5 Allergy status to narcotic agent; Z88.2 Allergy status to sulfonamides; Z91.09 Other allergy status, other than to drugs and biological substances; Z79.899 Other long term (current) drug therapy; Z79.4 Long term (current) use of insulin; Z79.01 Long term (current) use of anticoagulants; Z98.890 Other specified postprocedural states; Z95.0 Presence of cardiac pacemaker
CPT/HCPCS: 36415; 36416; 71045; 74018; 76705; 78227; 78452; 80048; 80053; 80061; 80076; 81001; 82553; 83036; 83690; 83880; 84484; 85025; 85610; 85730; 93005; 93017; 93306; 94640; 94760; 96374; 96376; A9500; A9537; G0378; J1815; J1940; J2405; J2550; J2785; J7611

== ENCOUNTER 2023-11-11 17:18 | Inpatient (IN) | payer MEDICARE, MEDICAID ==
[2023-11-11] MEDS ORDERED: Acetaminophen 325 MG TAB ONE (18:28)
[2023-11-11 18:40] LABS: #Basophils 0.04 10x3/uL (0.0-0.2); %Basophils 0.5 % (0.0-1.0); %Eosinophils 0.4 % (0.0-10.0); %Lymphocytes 15.3 % (21.0-51.0); %Monocytes 7.4 % (0.0-10.0); %Neutrophils 75.1 % (42.0-75.0); Hematocrit 40.2 % (36.0-47.0); Mean Corpuscular HGB CONC 34.8 g/dL (32.0-36.0); Mean Corpuscular Hemoglobin 30.4 pg (27.0-31.0); Mean Corpuscular Volume 87.4 fL (78.0-98.0); Mean Platelet Volume 8.2 fL (7.4-10.4); Platelet Count 207 10x3/uL (130-400); RBC Distribution Width 15.4 % (11.5-14.5)
[2023-11-11 18:59] LABS: ALT (SGPT) 15 U/L (8-55); AST (SGOT) 16 U/L (5-34); Albumin 3.9 g/dL (3.4-4.8); Alkaline Phosphatase 58 U/L (40-110); Anion Gap 17 mmol/L (10-20); BUN (Urea Nitrogen) 60 mg/dL (9.8-20.1); Bilirubin, Total 0.8 mg/dL (0.2-1.2); Calc. Creatinine Clearance 0 mL/min (70-130); Calcium 9.9 mg/dL (7.8-10.44); Carbon Dioxide 19 mmol/L (23-31); Chloride 93 mmol/L (98-107); Estimated GFR 15; Globulin 4.1 g/dL (2.4-3.5); Glucose 190 mg/dL (83-110); Potassium 5.1 mmol/L (3.5-5.1); Sodium 124 mmol/L (136-145)
[2023-11-11 19:06] LABS: Troponin I 0.036 ng/mL (< 0.028)
[2023-11-11] MEDS ORDERED: Acetaminophen 650 MG Suppository PR PRN (20:47)
[2023-11-11] MEDS ORDERED: Ondansetron ODT 4 MG TAB PO PRN (20:47)
[2023-11-11] MEDS ORDERED: Ondansetron PF 4 MG/2 ML Vial IVP PRN (20:47)
[2023-11-11] MEDS ORDERED: Glucagon 1 MG/ML KIT IM PRN (21:09)
[2023-11-11] MEDS ORDERED: Dextrose 50% Abboject 50 ML SYRINGE SLOW IVP PRN (21:09)
[2023-11-11] MEDS ORDERED: Dextrose 5% in Water 1,000 ML IV PRN (21:09)
[2023-11-11] MEDS ORDERED: Sodium Chloride 0.9% 1,000 ML IV SCH ×2 (21:15→23:15)
[2023-11-11] MEDS ORDERED: Sodium Chloride 0.9% 500 ML IV SCH (21:15)
[2023-11-11] MEDS: Acetaminophen 325 MG TAB PO PRN (22:32)
[2023-11-11 22:33] VITALS: BMI 30.9
[2023-11-11] MEDS: cefTRIAXone\\ROCEPHIN 1 GM in Sodium Chloride 0.9% 100 ML IVPB SCH (22:33)
[2023-11-11 22:51] LABS: Anion Gap 18 mmol/L (10-20); BUN (Urea Nitrogen) 56 mg/dL (9.8-20.1); Calc. Creatinine Clearance 18 mL/min (70-130); Carbon Dioxide 16 mmol/L (23-31); Chloride 96 mmol/L (98-107); Estimated GFR 17; Glucose 120 mg/dL (83-110); Sodium 125 mmol/L (136-145)
[2023-11-11] MEDS ORDERED: hydrALAZINE 20 MG/ML VIAL SLOW IVP PRN (23:03)
[2023-11-11] MEDS: Sodium Chloride 0.9% 1,000 ML IV SCH (23:25)
[2023-11-11] MEDS: Sodium Bicarb 50 mEq/50 ML VIAL IVP SCH (23:27)
[2023-11-12 00:57] LABS: Troponin I 0.043 ng/mL (< 0.028)
[2023-11-12 01:40] LABS: Troponin I 0.051 ng/mL (< 0.028)
[2023-11-12 01:50] LABS: Anion Gap 19 mmol/L (10-20); BUN (Urea Nitrogen) 54 mg/dL (9.8-20.1); Calc. Creatinine Clearance 19 mL/min (70-130); Calcium 9.5 mg/dL (7.8-10.44); Carbon Dioxide 23 mmol/L (23-31); Chloride 93 mmol/L (98-107); Estimated GFR 19; Glucose 99 mg/dL (83-110); Potassium 4.6 mmol/L (3.5-5.1); Sodium 130 mmol/L (136-145)
[2023-11-12] MEDS: Furosemide 40 MG (4 mL) VIAL SLOW IVP SCH (01:56)
[2023-11-12] MEDS: Furosemide 20 MG (2 mL) VIAL SLOW IVP SCH (01:59)
[2023-11-12 02:23] LABS: Bilirubin Negative (Negative); Blood, Urine Negative (Negative); CAUTI Indications for Culture Alt mental st,lethar; Clarity Clear (Clear); Glucose, Urine (Dipstick) Greater than 1000 mg/dL (Negative); Ketone, Urine Negative (Negative); Leukocyte Negative Leu/uL (Negative); Nitrite Negative (Negative); Protein, Urine (Dipstick) Negative (Neg-Trace); RBC/HPF 0-3 HPF (0-3); Specific Gravity, Urine 1.011 (1.002-1.036); Squamous Epithelial 0-3 HPF (0-3); Urobilinogen Normal mg/dL (Less than 2); WBC/HPF 0-3 HPF (0-3); pH, Urine 5.5 (5.0-9.0)
[2023-11-12 02:30] LABS: Bacteria/HPF 1+ HPF (None Seen); Yeast-Budding 1+ HPF (None Seen)
[2023-11-12 02:32] LABS: Urine Culture Reflex No No
[2023-11-12 04:31] LABS: #Basophils 0.05 10x3/uL (0.0-0.2); %Basophils 0.6 % (0.0-1.0); %Eosinophils 0.4 % (0.0-10.0); %Lymphocytes 17.6 % (21.0-51.0); %Monocytes 11.1 % (0.0-10.0); %Neutrophils 69.3 % (42.0-75.0); Hemoglobin 12.9 g/dL (12.0-16.0); Mean Corpuscular HGB CONC 34.9 g/dL (32.0-36.0); Mean Corpuscular Hemoglobin 29.7 pg (27.0-31.0); Mean Corpuscular Volume 85.1 fL (78.0-98.0); Mean Platelet Volume 8.1 fL (7.4-10.4); Platelet Count 233 10x3/uL (130-400); RBC Distribution Width 15.1 % (11.5-14.5); Red Blood Cell (RBC) Count 4.35 mill/uL (4.20-5.40)
[2023-11-12 04:47] LABS: Anion Gap 22 mmol/L (10-20); BUN (Urea Nitrogen) 53 mg/dL (9.8-20.1); Calc. Creatinine Clearance 19 mL/min (70-130); Calcium 9.9 mg/dL (7.8-10.44); Carbon Dioxide 22 mmol/L (23-31); Chloride 92 mmol/L (98-107); Estimated GFR 19; Glucose 109 mg/dL (83-110); Potassium 4.6 mmol/L (3.5-5.1); Sodium 131 mmol/L (136-145)
[2023-11-12] MEDS: Carvedilol 25 MG TAB PO SCH (08:56)
[2023-11-12] MEDS: Apixaban 2.5 MG TAB PO SCH (08:56)
[2023-11-12] MEDS ORDERED: Furosemide 40 MG (4 mL) VIAL SLOW IVP SCH (09:00)
[2023-11-12] MEDS: Sodium Chloride 0.9% 1,000 ML IV SCH (10:19)
[2023-11-12 10:24] LABS: Critical Call Chem Troponin I @2NO.ZIB 7/1 1019
[2023-11-12] MEDS: Insulin Lispro 100 UNIT/ML 10 ML VIAL SC PRN (12:57)
[2023-11-12 13:17] LABS: Troponin I 0.085 ng/mL (< 0.028)
[2023-11-12] MEDS: Gabapentin 100 MG CAP PO SCH (21:08)
[2023-11-13 04:59] LABS: Cardiac Risk 4.1 (Less than 4.5)
[2023-11-13 08:27] LABS: Anion Gap 14 mmol/L (10-20); BUN (Urea Nitrogen) 52 mg/dL (9.8-20.1); Calc. Creatinine Clearance 18 mL/min (70-130); Calcium 9.1 mg/dL (7.8-10.44); Carbon Dioxide 25 mmol/L (23-31); Chloride 101 mmol/L (98-107); Estimated GFR 20; Glucose 136 mg/dL (83-110); Potassium 4.5 mmol/L (3.5-5.1); Sodium 135 mmol/L (136-145)
[2023-11-13] MEDS: Sodium Chloride 0.9% 1,000 ML IV SCH (09:42)
[2023-11-13] MEDS: Carvedilol 6.25 MG TAB PO SCH (16:45)
[2023-11-13] MEDS: Insulin Lispro 100 UNIT/ML 10 ML VIAL SC PRN (20:27)
[2023-11-14 04:50] LABS: #Basophils 0.04 10x3/uL (0.0-0.2); %Basophils 0.5 % (0.0-1.0); %Eosinophils 1.9 % (0.0-10.0); %Lymphocytes 28.8 % (21.0-51.0); %Monocytes 12.8 % (0.0-10.0); Hematocrit 31.7 % (36.0-47.0); Hemoglobin 10.5 g/dL (12.0-16.0); Mean Corpuscular HGB CONC 33.1 g/dL (32.0-36.0); Mean Corpuscular Hemoglobin 30.7 pg (27.0-31.0); Mean Corpuscular Volume 92.7 fL (78.0-98.0); Mean Platelet Volume 8.3 fL (7.4-10.4); Platelet Count 179 10x3/uL (130-400); RBC Distribution Width 16.4 % (11.5-14.5); Red Blood Cell (RBC) Count 3.42 mill/uL (4.20-5.40)
[2023-11-14 05:23] LABS: Anion Gap 12 mmol/L (10-20); BUN (Urea Nitrogen) 43 mg/dL (9.8-20.1); Calc. Creatinine Clearance 26 mL/min (70-130); Calcium 8.7 mg/dL (7.8-10.44); Carbon Dioxide 20 mmol/L (23-31); Chloride 108 mmol/L (98-107); Estimated GFR 32; Glucose 136 mg/dL (83-110); Potassium 4.3 mmol/L (3.5-5.1); Sodium 136 mmol/L (136-145)
[2023-11-15 05:49] LABS: #Basophils 0.06 10x3/uL (0.0-0.2); %Basophils 0.8 % (0.0-1.0); %Eosinophils 2.8 % (0.0-10.0); %Lymphocytes 27.6 % (21.0-51.0); %Monocytes 12.4 % (0.0-10.0); %Neutrophils 55.6 % (42.0-75.0); Hematocrit 32.7 % (36.0-47.0); Hemoglobin 10.3 g/dL (12.0-16.0); Mean Corpuscular HGB CONC 31.5 g/dL (32.0-36.0); Mean Corpuscular Hemoglobin 30.3 pg (27.0-31.0); Mean Corpuscular Volume 96.2 fL (78.0-98.0); Mean Platelet Volume 8.5 fL (7.4-10.4); Platelet Count 145 10x3/uL (130-400)
[2023-11-15 06:08] LABS: Anion Gap 15 mmol/L (10-20); BUN (Urea Nitrogen) 33 mg/dL (9.8-20.1); Calc. Creatinine Clearance 32 mL/min (70-130); Calcium 8.6 mg/dL (7.8-10.44); Carbon Dioxide 16 mmol/L (23-31); Chloride 115 mmol/L (98-107); Estimated GFR 37; Glucose 131 mg/dL (83-110); Potassium 4.7 mmol/L (3.5-5.1); Sodium 141 mmol/L (136-145)
[2023-11-15] MEDS: Furosemide 20 MG TAB PO SCH (08:06)
[2023-11-15] MEDS: Potassium Chloride 20 MEQ TAB PO SCH (08:06)
[2023-11-15] MEDS: Empagliflozin 25 MG TAB PO SCH (08:06)
[2023-11-15] MEDS: Sodium Bicarbonate Tab 325 MG TAB PO SCH (13:58)
[2023-11-16 04:54] LABS: #Basophils 0.05 10x3/uL (0.0-0.2); %Basophils 0.7 % (0.0-1.0); %Eosinophils 2.7 % (0.0-10.0); %Lymphocytes 28.2 % (21.0-51.0); %Monocytes 10.9 % (0.0-10.0); %Neutrophils 56.4 % (42.0-75.0); Hematocrit 30.5 % (36.0-47.0); Hemoglobin 9.8 g/dL (12.0-16.0); Mean Corpuscular HGB CONC 32.1 g/dL (32.0-36.0); Mean Corpuscular Hemoglobin 29.9 pg (27.0-31.0); Mean Platelet Volume 8.5 fL (7.4-10.4); Platelet Count 168 10x3/uL (130-400); RBC Distribution Width 17.2 % (11.5-14.5); Red Blood Cell (RBC) Count 3.28 mill/uL (4.20-5.40)
[2023-11-16 05:08] LABS: Anion Gap 13 mmol/L (10-20); BUN (Urea Nitrogen) 32 mg/dL (9.8-20.1); Calc. Creatinine Clearance 34 mL/min (70-130); Calcium 8.7 mg/dL (7.8-10.44); Carbon Dioxide 21 mmol/L (23-31); Chloride 114 mmol/L (98-107); Estimated GFR 41; Glucose 127 mg/dL (83-110); Potassium 4.7 mmol/L (3.5-5.1); Sodium 143 mmol/L (136-145)
[2023-11-16 16:01] VITALS: BP 162/70; TEMP 98
[2023-11-16] MEDS: Cephalexin 250 MG CAP PO SCH (16:02)
== END 2023-11-16 18:34 | DRG 682 ==
LOC: ERS 17:18 → 2NO 19:58 → OBSVTOIN 11-12 16:45
PROVIDERS: ADMIT Student in an Organized Health Care Education/Training Program; ATTEND Internal Medicine
DX: N17.9 Acute kidney failure, unspecified (principal); I50.33 Acute on chronic diastolic (congestive) heart failure; E87.1 Hypo-osmolality and hyponatremia; I13.0 Hypertensive heart and chronic kidney disease with heart failure and stage 1 through stage 4 chronic kidney disease, or unspecified chronic kidney disease; L03.116 Cellulitis of left lower limb; I48.11 Longstanding persistent atrial fibrillation; E87.20 Acidosis, unspecified; S00.03XA Contusion of scalp, initial encounter; K21.9 Gastro-esophageal reflux disease without esophagitis; R53.81 Other malaise; E11.22 Type 2 diabetes mellitus with diabetic chronic kidney disease; I95.1 Orthostatic hypotension; N18.4 Chronic kidney disease, stage 4 (severe); W18.30XA Fall on same level, unspecified, initial encounter; Z96.659 Presence of unspecified artificial knee joint; Z88.2 Allergy status to sulfonamides; Z88.5 Allergy status to narcotic agent; Z91.040 Latex allergy status; Z79.4 Long term (current) use of insulin; Z79.899 Other long term (current) drug therapy; Z95.810 Presence of automatic (implantable) cardiac defibrillator; Z98.890 Other specified postprocedural states
CPT/HCPCS: 36415; 36416; 70450; 71045; 72125; 80048; 80053; 80061; 81001; 82010; 83880; 83935; 84300; 84484; 85025; 87040; 93005; 93306; J0696; J1815; J1940; J3490; J7050

== ENCOUNTER 2024-02-10 05:49 | Inpatient (IN) | payer MEDICARE, MEDICAID ==
[2024-02-10 06:39] LABS: #Basophils 0.05 10x3/uL (0.0-0.2); %Basophils 0.4 % (0.0-1.0); %Eosinophils 0.6 % (0.0-10.0); %Lymphocytes 16.5 % (21.0-51.0); %Monocytes 8.8 % (0.0-10.0); %Neutrophils 72.6 % (42.0-75.0); Hematocrit 38.7 % (36.0-47.0); Hemoglobin 11.7 g/dL (12.0-16.0); Mean Corpuscular HGB CONC 30.2 g/dL (32.0-36.0); Mean Corpuscular Hemoglobin 30.5 pg (27.0-31.0); Mean Corpuscular Volume 100.8 fL (78.0-98.0); Mean Platelet Volume 9.7 fL (7.4-10.4); Platelet Count 193 10x3/uL (130-400); Red Blood Cell (RBC) Count 3.84 mill/uL (4.20-5.40)
[2024-02-10 06:58] LABS: ALT (SGPT) 29 U/L (8-55); AST (SGOT) 23 U/L (5-34); Albumin 3.4 g/dL (3.4-4.8); Alkaline Phosphatase 76 U/L (40-110); Anion Gap 15 mmol/L (10-20); BUN (Urea Nitrogen) 50 mg/dL (9.8-20.1); Bilirubin, Total 0.4 mg/dL (0.2-1.2); Calc. Creatinine Clearance 0 mL/min (70-130); Calcium 9.1 mg/dL (7.8-10.44); Carbon Dioxide 21 mmol/L (23-31); Chloride 113 mmol/L (98-107); Estimated GFR 30; Globulin 3.8 g/dL (2.4-3.5); Glucose 125 mg/dL (83-110); Lipase 27 U/L (8-78); Potassium 4.5 mmol/L (3.5-5.1); Protein, Total 7.2 g/dL (5.8-8.1); Sodium 144 mmol/L (136-145)
[2024-02-10 07:05] LABS: Troponin I 0.023 ng/mL (< 0.028)
[2024-02-10 08:17] VITALS: BMI 29.7
[2024-02-10] MEDS ORDERED: Glucagon 1 MG/ML KIT IM PRN (08:24)
[2024-02-10] MEDS ORDERED: Dextrose 5% in Water 1,000 ML IV PRN (08:24)
[2024-02-10] MEDS ORDERED: Ondansetron PF 4 MG/2 ML Vial IVP PRN (08:24)
[2024-02-10] MEDS ORDERED: Guaifenesin DM 100-10/5 ML UDCUP PO PRN (08:24)
[2024-02-10] MEDS ORDERED: Dextrose 50% Abboject 50 ML SYRINGE SLOW IVP PRN (08:24)
[2024-02-10] MEDS ORDERED: Non-Formulary Item 1 EACH (Cholecalciferol (Vitamin D3) [Vitamin D3] 125 MCG Tablet) PO SCH (09:00)
[2024-02-10] MEDS ORDERED: CYANOCOBALAMIN 1000 MCG PO SCH (09:00)
[2024-02-10] MEDS ORDERED: [UNRECOGNIZED DRUG - OTHER] PO SCH (09:00)
[2024-02-10] MEDS ORDERED: Non-Formulary Item 1 EACH (Ascorbate Calcium [Vitamin C] 500 MG Tablet) PO SCH (09:00)
[2024-02-10] MEDS ORDERED: SUB PO SCH (09:00)
[2024-02-10] MEDS ORDERED: Cholecalciferol 1,000 UNITS (25 MCG) TAB ONE (10:14)
[2024-02-10] MEDS ORDERED: Ascorbic Acid 500 mg Chewable Tablet ONE (10:14)
[2024-02-10] MEDS ORDERED: Pantoprazole DR 40 MG TAB ONE (10:30)
[2024-02-10] MEDS ORDERED: Gabapentin 100 MG CAP ONE (10:30)
[2024-02-10] MEDS: Gabapentin 100 MG CAP PO SCH (10:32)
[2024-02-10] MEDS: Empagliflozin 25 MG TAB PO SCH (10:33)
[2024-02-10] MEDS: Pantoprazole DR 40 MG TAB PO SCH (10:33)
[2024-02-10] MEDS: Cholecalciferol 1,000 UNITS (25 MCG) TAB PO SCH (10:33)
[2024-02-10] MEDS: Cyanocobalamin (Vitamin B-12) 1,000 MCG TAB PO SCH (10:34)
[2024-02-10] MEDS: Ascorbic Acid 500 mg Chewable Tablet PO SCH (10:34)
[2024-02-10] MEDS ORDERED: Apixaban 5 MG TAB ONE (10:35)
[2024-02-10] MEDS ORDERED: Acetaminophen 325 MG TAB ONE (10:35)
[2024-02-10] MEDS: Apixaban 5 MG TAB PO SCH (10:36)
[2024-02-10] MEDS: Acetaminophen 325 MG TAB PO PRN (10:36)
[2024-02-10] MEDS ORDERED: Insulin Lispro 100 UNIT/ML 10 ML VIAL ONE (12:40)
[2024-02-10] MEDS: Insulin Lispro 100 UNIT/ML 10 ML VIAL SC PRN ×2 (12:42→21:49)
[2024-02-10] MEDS ORDERED: Furosemide 40 MG (4 mL) VIAL SLOW IVP SCH (14:00)
[2024-02-10] MEDS: Aspirin 325 MG TAB PO SCH (14:02)
[2024-02-10] MEDS: Furosemide 40 MG (4 mL) VIAL SLOW IVP SCH ×2 (14:40→14:42)
[2024-02-10 14:52] LABS: Anion Gap 15 mmol/L (10-20); BUN (Urea Nitrogen) 43 mg/dL (9.8-20.1); Calc. Creatinine Clearance 24 mL/min (70-130); Calcium 9.1 mg/dL (7.8-10.44); Carbon Dioxide 23 mmol/L (23-31); Chloride 112 mmol/L (98-107); Estimated GFR 26; Glucose 147 mg/dL (83-110); Potassium 4.6 mmol/L (3.5-5.1); Sodium 145 mmol/L (136-145)
[2024-02-10] MEDS: Carvedilol 6.25 MG TAB PO SCH (16:46)
[2024-02-10] MEDS ORDERED: Non-Formulary Item 1 EACH (Carvedilol [Carvedilol] 12.5 MG Tablet) PO SCH (17:00)
[2024-02-10 18:20] LABS: Bacteria/HPF None Seen HPF (None Seen); Bilirubin Negative (Negative); Blood, Urine Negative (Negative); Clarity Clear (Clear); Glucose, Urine (Dipstick) >=1000 mg/dL (Negative); Ketone, Urine Negative (Negative); Leukocyte Negative Leu/uL (Negative); Nitrite Negative (Negative); Protein, Urine (Dipstick) Negative (Neg-Trace); RBC/HPF 0-3 HPF (0-3); Specific Gravity, Urine 1.008 (1.002-1.036); Squamous Epithelial 0-3 HPF (0-3); Urobilinogen Normal mg/dL (Less than 2); WBC/HPF 0-3 HPF (0-3)
[2024-02-10 18:38] LABS: Creatinine, Urine 23.69 mg/dL (47-110); Protein, Urine Random Quant Less than 10 mg/dL (1-14); Sodium, Urine 120 mmol/L (Not Available); Urea Nitrogen, Random Urine 271 mg/dl
[2024-02-10] MEDS: Atorvastatin Calcium 10 MG TAB PO SCH (20:28)
[2024-02-10] MEDS: hydrALAZINE 25 MG TAB PO SCH (20:28)
[2024-02-10] MEDS ORDERED: Atorvastatin Calcium 10 MG TAB PO SCH (21:00)
[2024-02-11 05:01] LABS: #Basophils 0.05 10x3/uL (0.0-0.2); #Eosinphils Less than 0.03 10x3/uL (0.0-0.7); %Basophils 0.5 % (0.0-1.0); %Eosinophils 0.2 % (0.0-10.0); %Lymphocytes 15.2 % (21.0-51.0); %Monocytes 11.2 % (0.0-10.0); %Neutrophils 72.3 % (42.0-75.0); Hematocrit 33.6 % (36.0-47.0); Hemoglobin 10.6 g/dL (12.0-16.0); Mean Corpuscular HGB CONC 31.5 g/dL (32.0-36.0); Mean Corpuscular Hemoglobin 30.5 pg (27.0-31.0); Mean Corpuscular Volume 96.8 fL (78.0-98.0); Mean Platelet Volume 9.8 fL (7.4-10.4); Platelet Count 173 10x3/uL (130-400); RBC Distribution Width 14.1 % (11.5-14.5); Red Blood Cell (RBC) Count 3.47 mill/uL (4.20-5.40)
[2024-02-11 05:10] LABS: Anion Gap 13 mmol/L (10-20); BUN (Urea Nitrogen) 44 mg/dL (9.8-20.1); Calc. Creatinine Clearance 23 mL/min (70-130); Calcium 8.9 mg/dL (7.8-10.44); Carbon Dioxide 25 mmol/L (23-31); Chloride 110 mmol/L (98-107); Estimated GFR 25; Glucose 157 mg/dL (83-110); Potassium 4.4 mmol/L (3.5-5.1); Sodium 144 mmol/L (136-145)
[2024-02-11] MEDS: Furosemide 40 MG (4 mL) VIAL SLOW IVP SCH (05:44)
[2024-02-11] MEDS: EPOETIN ALFA-EPBX 10,000 UNITS/ML VIAL SC SCH (09:11)
[2024-02-11] MEDS: Apixaban 5 MG TAB PO SCH ×2 (12:48→22:09)
[2024-02-12 05:43] LABS: #Basophils 0.04 10x3/uL (0.0-0.2); %Basophils 0.5 % (0.0-1.0); %Eosinophils 1.8 % (0.0-10.0); %Lymphocytes 26.2 % (21.0-51.0); %Monocytes 11.7 % (0.0-10.0); %Neutrophils 59.4 % (42.0-75.0); Hematocrit 34.3 % (36.0-47.0); Hemoglobin 10.8 g/dL (12.0-16.0); Mean Corpuscular HGB CONC 31.5 g/dL (32.0-36.0); Mean Corpuscular Hemoglobin 30.3 pg (27.0-31.0); Mean Corpuscular Volume 96.1 fL (78.0-98.0); Platelet Count 174 10x3/uL (130-400); RBC Distribution Width 13.6 % (11.5-14.5); Red Blood Cell (RBC) Count 3.57 mill/uL (4.20-5.40)
[2024-02-12 05:55] LABS: Anion Gap 15 mmol/L (10-20); BUN (Urea Nitrogen) 52 mg/dL (9.8-20.1); Calc. Creatinine Clearance 23 mL/min (70-130); Calcium 9.1 mg/dL (7.8-10.44); Carbon Dioxide 27 mmol/L (23-31); Chloride 108 mmol/L (98-107); Estimated GFR 25; Glucose 150 mg/dL (83-110); Potassium 4.2 mmol/L (3.5-5.1); Sodium 146 mmol/L (136-145)
[2024-02-12] MEDS: Carvedilol 6.25 MG TAB PO SCH (07:56)
[2024-02-12] MEDS: Senokot S 8.6-50 MG TAB PO PRN (17:13)
[2024-02-13 06:28] LABS: #Basophils 0.03 10x3/uL (0.0-0.2); %Basophils 0.5 % (0.0-1.0); %Eosinophils 2.2 % (0.0-10.0); %Lymphocytes 33.5 % (21.0-51.0); %Monocytes 9.1 % (0.0-10.0); %Neutrophils 54.4 % (42.0-75.0); Hematocrit 37.8 % (36.0-47.0); Hemoglobin 12.1 g/dL (12.0-16.0); Mean Corpuscular Hemoglobin 30.5 pg (27.0-31.0); Mean Corpuscular Volume 95.2 fL (78.0-98.0); Mean Platelet Volume 9.6 fL (7.4-10.4); Platelet Count 199 10x3/uL (130-400); RBC Distribution Width 13.2 % (11.5-14.5); Red Blood Cell (RBC) Count 3.97 mill/uL (4.20-5.40)
[2024-02-13 06:49] LABS: Anion Gap 15 mmol/L (10-20); BUN (Urea Nitrogen) 45 mg/dL (9.8-20.1); Calc. Creatinine Clearance 30 mL/min (70-130); Calcium 9.4 mg/dL (7.8-10.44); Carbon Dioxide 25 mmol/L (23-31); Chloride 106 mmol/L (98-107); Estimated GFR 34; Glucose 140 mg/dL (83-110); Potassium 4.3 mmol/L (3.5-5.1); Sodium 142 mmol/L (136-145)
[2024-02-13] MEDS: Furosemide 20 MG TAB PO SCH (08:38)
[2024-02-13] MEDS: Furosemide 40 MG (4 mL) VIAL SLOW IVP SCH (10:27)
[2024-02-13] MEDS: Carvedilol 6.25 MG TAB PO SCH (17:22)
[2024-02-13] MEDS: Apixaban 2.5 MG TAB PO SCH (21:15)
[2024-02-14 04:39] LABS: #Basophils 0.04 10x3/uL (0.0-0.2); %Basophils 0.6 % (0.0-1.0); %Eosinophils 1.6 % (0.0-10.0); %Lymphocytes 38.6 % (21.0-51.0); %Monocytes 10.2 % (0.0-10.0); %Neutrophils 48.4 % (42.0-75.0); Hematocrit 38.8 % (36.0-47.0); Hemoglobin 12.7 g/dL (12.0-16.0); Mean Corpuscular HGB CONC 32.7 g/dL (32.0-36.0); Mean Corpuscular Hemoglobin 30.1 pg (27.0-31.0); Mean Corpuscular Volume 91.9 fL (78.0-98.0); Mean Platelet Volume 9.2 fL (7.4-10.4); Platelet Count 233 10x3/uL (130-400); RBC Distribution Width 13.2 % (11.5-14.5); Red Blood Cell (RBC) Count 4.22 mill/uL (4.20-5.40)
[2024-02-14 04:47] LABS: Anion Gap 17 mmol/L (10-20); BUN (Urea Nitrogen) 48 mg/dL (9.8-20.1); Calc. Creatinine Clearance 26 mL/min (70-130); Calcium 9.4 mg/dL (7.8-10.44); Carbon Dioxide 29 mmol/L (23-31); Chloride 98 mmol/L (98-107); Estimated GFR 29; Glucose 156 mg/dL (83-110); Potassium 3.8 mmol/L (3.5-5.1); Sodium 140 mmol/L (136-145)
[2024-02-14] MEDS: Furosemide 40 MG TAB PO SCH (09:33)
[2024-02-14 15:45] VITALS: BP 130/60; TEMP 97.9
== END 2024-02-14 19:16 | DRG 291 ==
LOC: ERS 05:49 → ERHOLD 07:39 → 2NO 13:30
PROVIDERS: ADMIT Internal Medicine; ATTEND Hospitalist
DX: I13.0 Hypertensive heart and chronic kidney disease with heart failure and stage 1 through stage 4 chronic kidney disease, or unspecified chronic kidney disease (principal); I50.33 Acute on chronic diastolic (congestive) heart failure; J96.01 Acute respiratory failure with hypoxia; N18.4 Chronic kidney disease, stage 4 (severe); N17.9 Acute kidney failure, unspecified; M19.90 Unspecified osteoarthritis, unspecified site; E78.5 Hyperlipidemia, unspecified; Z95.0 Presence of cardiac pacemaker; K21.9 Gastro-esophageal reflux disease without esophagitis; I48.91 Unspecified atrial fibrillation; E11.22 Type 2 diabetes mellitus with diabetic chronic kidney disease; I49.5 Sick sinus syndrome; D63.1 Anemia in chronic kidney disease; Z91.041 Radiographic dye allergy status; Z91.040 Latex allergy status; Z88.2 Allergy status to sulfonamides; Z88.8 Allergy status to other drugs, medicaments and biological substances; Z98.890 Other specified postprocedural states; Z79.4 Long term (current) use of insulin
CPT/HCPCS: 36415; 36416; 71045; 80048; 80053; 81001; 82570; 83690; 83880; 84145; 84156; 84300; 84443; 84484; 84540; 85025; 85379; 86141; 87631; 93005; 93306; J1815; J1940; Q5106

== ENCOUNTER 2024-04-11 10:45 | Inpatient (IN) | payer MEDICARE, MEDICAID ==
[2024-04-11 11:21] LABS: Actual Bicarbonate (HCO3v) 21.7 mEq/L (22-28); Analyzer IN Cardio ER; Base Excess -2.9 mEq/L (-2.0 to +3.0); Calcium, Ionized (venous) 1.17 mmol/L (1.16-1.32); Chloride (VBG) 106 mmol/L (98-106); Hematocrit-VBG 34 % (36.0-47.0); Hemoglobin (Hb) 11.4 g/dL (11.7-16.1); Potassium (VBG) 4.45 mmol/L (3.70-5.30); Sodium 145 mmol/L (133-146); pH (venous) 7.385 (7.32-7.43)
[2024-04-11] MEDS ORDERED: methylPREDNISolone Sod Succ/PF 125 MG/2 ML VIAL ONE (11:35)
[2024-04-11] MEDS ORDERED: cefTRIAXone (ROCEPHIN) 2 GM VIAL ONE (11:35)
[2024-04-11] MEDS ORDERED: Sodium Chloride 0.9% 100 ML ONE (11:36)
[2024-04-11] MEDS ORDERED: Azithromycin 500 MG VIAL ONE (11:36)
[2024-04-11 11:45] LABS: #Basophils 0.03 10x3/uL (0.0-0.2); #Eosinophils Less than 0.03 10x3/uL (0.0-0.7); %Basophils 0.3 % (0.0-1.0); %Eosinophils 0.1 % (0.0-10.0); %Lymphocytes 5.9 % (21.0-51.0); %Monocytes 8.8 % (0.0-10.0); %Neutrophils 84.2 % (42.0-75.0); Hematocrit 35.6 % (36.0-47.0); Hemoglobin 11.3 g/dL (12.0-16.0); Mean Corpuscular HGB CONC 31.7 g/dL (32.0-36.0); Mean Corpuscular Hemoglobin 28.3 pg (27.0-31.0); Mean Corpuscular Volume 89.2 fL (78.0-98.0); Mean Platelet Volume 9.3 fL (7.4-10.4); Platelet Count 234 10x3/uL (130-400); RBC Distribution Width 15.3 % (11.5-14.5); Red Blood Cell (RBC) Count 3.99 mill/uL (4.20-5.40)
[2024-04-11 12:01] LABS: ALT (SGPT) 47 U/L (8-55); AST (SGOT) 30 U/L (5-34); Albumin 3.7 g/dL (3.4-4.8); Alkaline Phosphatase 80 U/L (40-110); Anion Gap 15 mmol/L (10-20); BUN (Urea Nitrogen) 34 mg/dL (9.8-20.1); Bilirubin, Total 1.3 mg/dL (0.2-1.2); Calc. Creatinine Clearance 0 mL/min (70-130); Calcium 9.4 mg/dL (7.8-10.44); Carbon Dioxide 24 mmol/L (23-31); Chloride 108 mmol/L (98-107); Estimated GFR 27; Globulin 4.3 g/dL (2.4-3.5); Glucose 121 mg/dL (83-110); Potassium 4.4 mmol/L (3.5-5.1); Sodium 143 mmol/L (136-145)
[2024-04-11 12:08] LABS: Troponin I 0.012 ng/mL (< 0.028)
[2024-04-11 13:13] LABS: Acetaminophen Less than 10 mcg/mL (Less than 10); Alcohol Less than 10.0 mg/dL (Less than 10); Salicylate Less than 8.0 mg/dL (Less than 8.0)
[2024-04-11] MEDS ORDERED: Ondansetron PF 4 MG/2 ML Vial ONE (13:23)
[2024-04-11] MEDS ORDERED: Ondansetron ODT 4 MG TAB PO PRN (14:28)
[2024-04-11] MEDS ORDERED: Acetaminophen 650 MG Suppository PR PRN (14:28)
[2024-04-11] MEDS ORDERED: Acetaminophen 325 MG TAB PO PRN (14:28)
[2024-04-11] MEDS ORDERED: Ondansetron PF 4 MG/2 ML Vial IVP PRN (14:28)
[2024-04-11] MEDS ORDERED: Dextrose 5% in Water 1,000 ML IV PRN (14:31)
[2024-04-11] MEDS ORDERED: Glucagon 1 MG/ML KIT IM PRN (14:31)
[2024-04-11] MEDS ORDERED: Dextrose 50% Abboject 50 ML SYRINGE SLOW IVP PRN (14:31)
[2024-04-11 16:23] VITALS: BMI 33.4
[2024-04-11] MEDS: hydrALAZINE 25 MG TAB PO SCH (17:14)
[2024-04-11] MEDS: Carvedilol 6.25 MG TAB PO SCH (17:14)
[2024-04-11] MEDS: Atorvastatin Calcium 10 MG TAB PO SCH (21:27)
[2024-04-11] MEDS: Apixaban 2.5 MG TAB PO SCH (21:28)
[2024-04-11] MEDS: Amlodipine 5 MG TAB PO SCH (21:28)
[2024-04-11] MEDS: Gabapentin 100 MG CAP PO SCH (21:28)
[2024-04-11] MEDS: Insulin Lispro 100 UNIT/ML 10 ML VIAL SC PRN (21:34)
[2024-04-12] MEDS: Furosemide 40 MG (4 mL) VIAL SLOW IVP SCH (05:27)
[2024-04-12 07:24] LABS: #Basophils Less than 0.03 10x3/uL (0.0-0.2); #Eosinophils Less than 0.03 10x3/uL (0.0-0.7); %Basophils 0.1 % (0.0-1.0); %Lymphocytes 8.2 % (21.0-51.0); %Monocytes 5.6 % (0.0-10.0); %Neutrophils 85.7 % (42.0-75.0); Hematocrit 31.4 % (36.0-47.0); Hemoglobin 10.1 g/dL (12.0-16.0); Mean Corpuscular HGB CONC 32.2 g/dL (32.0-36.0); Mean Corpuscular Hemoglobin 28.1 pg (27.0-31.0); Mean Corpuscular Volume 87.5 fL (78.0-98.0); Mean Platelet Volume 9.7 fL (7.4-10.4); Platelet Count 218 10x3/uL (130-400); RBC Distribution Width 15.4 % (11.5-14.5); Red Blood Cell (RBC) Count 3.59 mill/uL (4.20-5.40)
[2024-04-12 07:40] LABS: Anion Gap 18 mmol/L (10-20); BUN (Urea Nitrogen) 43 mg/dL (9.8-20.1); Calc. Creatinine Clearance 24 mL/min (70-130); Carbon Dioxide 21 mmol/L (23-31); Chloride 107 mmol/L (98-107); Estimated GFR 22; Glucose 202 mg/dL (83-110); Potassium 4.3 mmol/L (3.5-5.1); Sodium 142 mmol/L (136-145)
[2024-04-12] MEDS: Losartan 25 MG TAB PO SCH (08:19)
[2024-04-12] MEDS: Pantoprazole DR 40 MG TAB PO SCH (08:19)
[2024-04-12] MEDS: Folic Acid 1 MG TAB PO SCH (08:19)
[2024-04-12] MEDS: Empagliflozin 25 MG TAB PO SCH (08:20)
[2024-04-12] MEDS ORDERED: Enoxaparin 40 MG (0.4 mL) SYRINGE SC SCH (09:00)
[2024-04-13 09:53] LABS: #Basophils 0.05 10x3/uL (0.0-0.2); #Eosinophils Less than 0.03 10x3/uL (0.0-0.7); %Basophils 0.5 % (0.0-1.0); %Monocytes 8.1 % (0.0-10.0); Hematocrit 32.2 % (36.0-47.0); Hemoglobin 10.1 g/dL (12.0-16.0); Mean Corpuscular HGB CONC 31.4 g/dL (32.0-36.0); Mean Corpuscular Hemoglobin 28.5 pg (27.0-31.0); Mean Corpuscular Volume 90.7 fL (78.0-98.0); Mean Platelet Volume 9.7 fL (7.4-10.4); Platelet Count 228 10x3/uL (130-400); RBC Distribution Width 15.6 % (11.5-14.5); Red Blood Cell (RBC) Count 3.55 mill/uL (4.20-5.40)
[2024-04-13 10:13] LABS: Anion Gap 17 mmol/L (10-20); BUN (Urea Nitrogen) 62 mg/dL (9.8-20.1); Calc. Creatinine Clearance 22 mL/min (70-130); Calcium 8.7 mg/dL (7.8-10.44); Carbon Dioxide 23 mmol/L (23-31); Chloride 103 mmol/L (98-107); Estimated GFR 21; Glucose 207 mg/dL (83-110); Potassium 4.3 mmol/L (3.5-5.1); Sodium 139 mmol/L (136-145)
[2024-04-14 05:25] LABS: #Basophils 0.03 10x3/uL (0.0-0.2); %Basophils 0.4 % (0.0-1.0); %Eosinophils 0.6 % (0.0-10.0); %Lymphocytes 22.3 % (21.0-51.0); %Neutrophils 65.3 % (42.0-75.0); Hematocrit 32.1 % (36.0-47.0); Hemoglobin 10.2 g/dL (12.0-16.0); Mean Corpuscular HGB CONC 31.8 g/dL (32.0-36.0); Mean Corpuscular Hemoglobin 28.4 pg (27.0-31.0); Mean Corpuscular Volume 89.4 fL (78.0-98.0); Mean Platelet Volume 9.7 fL (7.4-10.4); Platelet Count 223 10x3/uL (130-400); RBC Distribution Width 15.3 % (11.5-14.5); Red Blood Cell (RBC) Count 3.59 mill/uL (4.20-5.40)
[2024-04-14 05:46] LABS: Anion Gap 13 mmol/L (10-20); BUN (Urea Nitrogen) 69 mg/dL (9.8-20.1); Calc. Creatinine Clearance 24 mL/min (70-130); Calcium 8.4 mg/dL (7.8-10.44); Carbon Dioxide 27 mmol/L (23-31); Chloride 104 mmol/L (98-107); Estimated GFR 22; Glucose 171 mg/dL (83-110); Potassium 4.6 mmol/L (3.5-5.1); Sodium 139 mmol/L (136-145)
[2024-04-14 12:06] VITALS: TEMP 98.2
[2024-04-14 14:42] VITALS: BP 149/53
== END 2024-04-14 15:01 | DRG 291 ==
LOC: SUATTDRO 10:45 → ERS 10:45 → T4-A 16:10 → OBSVTOIN 04-13 11:58
PROVIDERS: ADMIT Internal Medicine; ATTEND Internal Medicine
DX: I13.0 Hypertensive heart and chronic kidney disease with heart failure and stage 1 through stage 4 chronic kidney disease, or unspecified chronic kidney disease (principal); I50.33 Acute on chronic diastolic (congestive) heart failure; J96.01 Acute respiratory failure with hypoxia; I48.19 Other persistent atrial fibrillation; N18.4 Chronic kidney disease, stage 4 (severe); G93.40 Encephalopathy, unspecified; N17.9 Acute kidney failure, unspecified; K21.9 Gastro-esophageal reflux disease without esophagitis; Z96.651 Presence of right artificial knee joint; E78.5 Hyperlipidemia, unspecified; M19.90 Unspecified osteoarthritis, unspecified site; E11.22 Type 2 diabetes mellitus with diabetic chronic kidney disease; Z91.041 Radiographic dye allergy status; Z91.040 Latex allergy status; Z88.5 Allergy status to narcotic agent; Z88.2 Allergy status to sulfonamides; Z95.0 Presence of cardiac pacemaker; Z79.899 Other long term (current) drug therapy; Z79.01 Long term (current) use of anticoagulants; Z79.84 Long term (current) use of oral hypoglycemic drugs
CPT/HCPCS: 36415; 36416; 70450; 71045; 74176; 78451; 80048; 80053; 80307; 82805; 83690; 83880; 84443; 84484; 85025; 85379; 93005; 93970; 94640; 94760; 96365; 96367; 96374; 96375; 96376; A9540; G0378; J0456; J0696; J1815; J1940; J2405; J2919